=== PATIENT | female | born 1980 | race Caucasian/White ===

== ENCOUNTER 2019-09-17 17:55 | Observation (INO) ==
[2019-09-17 20:16] LABS: Basophils # 0.1 K/mcL (0.0-0.2); Basophils % 0.5 %; Eosinophils # 0.3 K/mcL (0.0-0.6); Eosinophils % 2.3 %; Hematocrit 43.4 % (35.3-44.9); Hemoglobin 14.5 g/dL (11.5-15.4); Immature Granulocytes % 0.6 % (0-4); Lymphocytes # 3.9 K/mcL (0.6-4.6); Lymphocytes % 35.2 %; Mean Corpuscular HGB Conc 33.4 g/dL (31.6-35.5); Mean Corpuscular Hemoglobin 30.3 pg (28.0-33.3); Mean Corpuscular Volume 90.6 fL (83.0-100.0); Monocytes # 0.6 K/mcL (0.0-1.3); Monocytes % 5.6 %; Neutrophils # 6.2 K/mcL (1.6-8.9); Platelet Count 408 K/mcL (140-400); Red Blood Count 4.79 M/mcL (3.82-4.97); Red Cell Distribution Width 15.3 % (11.5-14.5); Segmented Neutrophils % 55.8 %; White Blood Count 11.2 K/mcL (4.3-11.1)
[2019-09-17 20:50] LABS: Alanine Aminotransferase 821 Units/L (7-52)
[2019-09-17] MEDS ORDERED: Isovue-370 500 ML BOTTLE IVP ONE (20:55)
[2019-09-17 21:13] LABS: Sodium 134 mEq/L (136-145)
[2019-09-17 21:15] LABS: Albumin 4.2 g/dL (3.5-5.7); Albumin/Globulin Ratio 1.4 (1.1-2.2); Alkaline Phosphatase 86 Units/L (34-104); Aspartate Amino Transferase 483 Units/L (13-39); BUN/Creatinine Ratio 10 (6-26); Blood Urea Nitrogen 9 mg/dL (6-20); Calcium 9.6 mg/dL (8.6-10.3); Carbon Dioxide 19 mEq/L (23-29); Chloride 104 mEq/L (98-107); Ethanol < 10 mg/dL (Less than 10); Glucose 99 mg/dL (70-105); Lipase 21 Units/L (11-82); Osmolality,Calculated 277 (280-300); Potassium 3.3 mEq/L (3.5-5.1); Total Protein 7.2 g/dL (6.4-8.9); eGFR For African Americans > 60 (> 60); eGFR For Non-African Americans > 60 (> 60)
[2019-09-17 22:09] LABS: INR 1.2; Prothrombin Time 13.3 Seconds (9.4-12.1)
[2019-09-17 22:39] LABS: Acetaminophen < 10 mcg/mL (10-20); Salicylate < 2.5 mg/dL (15.0-30.0)
[2019-09-17 22:57] LABS: Hepatitis B Surface Antigen Nonreactive (Nonreactive)
[2019-09-17 23:20] LABS: Amphetamine Screen,Urine Negative ng/mL (Cutoff=1000); Barbiturate Screen,Urine Negative ng/mL (Cutoff=200); Benzodiazepines Screen,Urine Negative ng/mL (Cutoff=200); Cannabinoid Screen,Urine Negative ng/mL (Cutoff = 50); Cocaine Screen,Urine Negative ng/mL (Cutoff= 300); Opiate Screen,Urine Negative ng/mL (Cutoff=300); Phencyclidine Screen,Urine Negative ng/mL (Cutoff=25)
[2019-09-17 23:26] LABS: Hepatitis B Core IgM Nonreactive (Nonreactive)
[2019-09-17 23:27] LABS: Hepatitis C Virus Antibody Nonreactive (Nonreactive)
[2019-09-17 23:28] LABS: Hepatitis A Antibody IgM Nonreactive (Nonreactive)
[2019-09-18] MEDS ORDERED: Ondansetron ODT 4 MG TAB.RAPDIS SL PRN (01:54)
[2019-09-18] MEDS ORDERED: Ibuprofen 400 MG TABLET PO PRN (01:54)
[2019-09-18] MEDS ORDERED: Naloxone 0.4 MG/ML INJ IVP PRN (01:54)
[2019-09-18 02:18] LABS: Bilirubin,Direct 4.1 mg/dL (0.0-0.2); Bilirubin,Indirect 3.2 mg/dL (0.0-1.0); Bilirubin,Total 7.3 mg/dL (0.3-1.0)
[2019-09-18] MEDS ORDERED: hydrOXYzine pamoate 25 MG CAPSULE PO ONE (05:10)
[2019-09-18] MEDS ORDERED: Potassium Chloride Elixir 20 MEQ/15 ML UDC PO ONE (05:36)
[2019-09-18 08:57] LABS: Hematocrit 42.5 % (35.3-44.9); Hemoglobin 13.9 g/dL (11.5-15.4); Mean Corpuscular HGB Conc 32.7 g/dL (31.6-35.5); Mean Corpuscular Hemoglobin 30.4 pg (28.0-33.3); Mean Platelet Volume 10.9 fL (9.4-12.4); Platelet Count 355 K/mcL (140-400); Red Blood Count 4.57 M/mcL (3.82-4.97); Red Cell Distribution Width 15.4 % (11.5-14.5)
[2019-09-18] MEDS ORDERED: MICROGESTIN FE PO SCH (09:00)
[2019-09-18] MEDS ORDERED: Famotidine 20 MG TABLET PO SCH (09:00)
[2019-09-18] MEDS ORDERED: CRANBERRY 400 MG PO SCH (09:00)
[2019-09-18] MEDS ORDERED: BuPROPion XL (24 HR) 150 MG TABLET PO SCH (09:00)
[2019-09-18] MEDS ORDERED: Loratadine 10 MG TABLET PO SCH (09:00)
[2019-09-18 09:02] LABS: Alanine Aminotransferase 750 Units/L (7-52); Albumin 3.9 g/dL (3.5-5.7); Albumin/Globulin Ratio 1.5 (1.1-2.2); Alkaline Phosphatase 81 Units/L (34-104); Aspartate Amino Transferase 426 Units/L (13-39); BUN/Creatinine Ratio 8 (6-26); Blood Urea Nitrogen 7 mg/dL (6-20); Calcium 9.2 mg/dL (8.6-10.3); Carbon Dioxide 23 mEq/L (23-29); Chloride 104 mEq/L (98-107); Globulin 2.6 g/dL (2.4-3.5); Glucose 103 mg/dL (70-105); Osmolality,Calculated 288 (280-300); Potassium 3.3 mEq/L (3.5-5.1); Sodium 140 mEq/L (136-145); Total Protein 6.5 g/dL (6.4-8.9); eGFR For African Americans > 60 (> 60); eGFR For Non-African Americans > 60 (> 60)
[2019-09-18 09:09] LABS: % Iron Saturation 44 % (15-50); Iron 154 mcg/dL (50-170); Transferrin 248 mg/dL (203-362)
[2019-09-18 10:38] VITALS: BP 119/79
[2019-09-18 17:01] LABS: Albumin 3.7 g/dL (3.5-5.7); Albumin/Globulin Ratio 1.3 (1.1-2.2); Bilirubin,Direct 3.7 mg/dL (0.0-0.2); Bilirubin,Indirect 3.1 mg/dL (0.0-1.0); Bilirubin,Total 6.8 mg/dL (0.3-1.0); Globulin 2.8 g/dL (2.4-3.5); Total Protein 6.5 g/dL (6.4-8.9)
[2019-09-19] MEDS ORDERED: BuPROPion XL (24 HR) 150 MG TABLET PO SCH (09:00)
[2019-09-20 13:13] LABS: ANA IgG by ELISA NONE DETECTED (None Detected)
[2019-09-22 10:46] LABS: Smooth Muscle Ab Titer IgG <1:20 (<1:20)
== END 2019-09-18 17:25 | disposition home or self-care (01) ==
LOC: EMEROOARM 17:55 → 1NENUPED 17:55 → SUATTDRO 23:49 → 1NENUPED 23:50
PROVIDERS: ADMIT Internal Medicine; ATTEND Internal Medicine